=== PATIENT | female | born 1975 | race Asian ===

== ENCOUNTER → 2017-01-25 | Outpatient (CLI) | payer BC ==
[2017-01-25 11:54] LABS: EOSINOPHILS % 4.3 % (0.0-5.0); HEMATOCRIT. 41.1 % (36.0-48.0); LYMPHOCYTES % 35.5 % (20.0-50.0); MEAN CORPUSCULAR HEMOGLOBIN 31.8 pg (28.0-32.0); MEAN PLATELET VOLUME 7.5 fl (7.4-10.4); NEUTROPHILS % 50.2 % (40.0-76.0); PLATELET 248 x1000/uL (130-400); RED BLOOD CELL COUNT 4.42 mill/uL (4.2-5.4); RED CELL DISTRIBUTION WIDTH 13.5 % (11.6-14.6)
[2017-01-25 11:58] LABS: CARBON DIOXIDE 27 mEq/L (21-32); CHLORIDE 104 mEq/L (98-107); HDL CHOLESTEROL 79 mg/dL (40-59); LDL CHOLESTEROL 86 mg/dL (5-100)
== END | disposition home or self-care (01) ==
LOC: LAB 10:43
PROVIDERS: ATTEND Internal Medicine
DX: Z00.01 Encounter for general adult medical examination with abnormal findings (principal); I10 Essential (primary) hypertension
CPT/HCPCS: 36415; 80053; 80061; 82248; 84439; 84443; 85025

== ENCOUNTER → 2017-02-06 | Outpatient (CLI) | payer BC | END | disposition home or self-care (01) | LOC: US 09:54 | PROVIDERS: ATTEND Internal Medicine | DX: N83.291 Other ovarian cyst, right side (principal) | CPT/HCPCS: 76830; 76856 ==

== ENCOUNTER → 2017-10-09 | Outpatient (CLI) | payer BC ==
[2017-10-09 08:32] LABS: BASOPHILS % 0.8 % (0.0-2.0); EOSINOPHILS % 1.5 % (0.0-5.0); HEMATOCRIT. 42.2 % (36.0-48.0); HEMOGLOBIN. 14.4 g/dL (12.0-16.0); LYMPHOCYTES % 20.2 % (20.0-50.0); MEAN CORPUSCULAR HEMOGLOBIN 31.8 pg (28.0-32.0); MEAN CORPUSCULAR VOLUME 93.6 fL (81.0-99.0); MEAN PLATELET VOLUME 7.6 fl (7.4-10.4); MONOCYTES % 6.5 % (2.0-8.0); PLATELET 224 x1000/uL (130-400); RED BLOOD CELL COUNT 4.51 mill/uL (4.2-5.4); RED CELL DISTRIBUTION WIDTH 13.9 % (11.6-14.6)
[2017-10-10 09:10] LABS: HAV IGM ANTIBODY Negative (Negative); HBSAG SCREEN Negative (Negative); HEPATITIS B CORE IGM AB Negative (Negative); HEPATITIS C AB 0.2 s/co ratio (0.0-0.9)
[2017-10-10 15:07] LABS: HIV SCREEN 4G Non Reactive (Non Reactive)
[2017-10-11 13:12] LABS: HGB A 97.7 % (96.4-98.8); HGB A2 2.3 % (1.8-3.2); HGB SOLUBILITY Negative (Negative)
== END ==
LOC: LAB 07:19
PROVIDERS: ATTEND Obstetrics & Gynecology Obstetrics
DX: Z33.1 Pregnant state, incidental (principal)
CPT/HCPCS: 36415; 80074; 82947; 82950; 83021; 85025; 85660; 86765; 86850; 86900; 87186

== ENCOUNTER → 2018-02-08 | Outpatient (CLI) | payer BC ==
[2018-02-09 10:09] LABS: CANCER ANTIGEN 125 12.3 U/mL (0.0-38.1)
== END | disposition home or self-care (01) ==
LOC: LAB 09:46
PROVIDERS: ATTEND Obstetrics & Gynecology Obstetrics
DX: E28.9 Ovarian dysfunction, unspecified (principal); N83.209 Unspecified ovarian cyst, unspecified side
CPT/HCPCS: 86304; 86305

== ENCOUNTER → 2018-03-05 | Outpatient (CLI) | payer BC ==
[2018-03-05 12:54] LABS: HEMATOCRIT 33.7 % (36.0-48.0); HEMOGLOBIN 11.4 g/dL (12.0-16.0)
== END | disposition home or self-care (01) ==
LOC: LAB 10:57
PROVIDERS: ATTEND Obstetrics & Gynecology Obstetrics
DX: O09.90 Supervision of high risk pregnancy, unspecified, unspecified trimester (principal); Z3A.00 Weeks of gestation of pregnancy not specified
CPT/HCPCS: 36415; 82950; 85014; 85018

== ENCOUNTER 2018-04-25 14:27 | Observation (INO) | payer BC ==
[~2018-04-25] VITALS: Ht 152.4 cm; Wt 57.2 kg
[2018-04-25] MEDS ORDERED: CHOL400T28 PO (15:04)
[2018-04-25] MEDS ORDERED: FERR325T6 PO (15:04)
[2018-04-25] MEDS ORDERED: DOCU-138 PO (15:04)
[2018-04-25] MEDS ORDERED: CALC-1042 PO (15:04)
[2018-04-25] MEDS ORDERED: PNV1TABL76 PO (15:04)
== END 2018-04-25 17:26 | disposition home or self-care (01) ==
LOC: 8 EST LDRP 14:27
PROVIDERS: ADMIT Obstetrics & Gynecology Obstetrics; ATTEND Obstetrics & Gynecology Obstetrics
DX: O62.9 Abnormality of forces of labor, unspecified (principal); O09.523 Supervision of elderly multigravida, third trimester; Z3A.37 37 weeks gestation of pregnancy
CPT/HCPCS: 59025; 76805; 76818; G0378

== ENCOUNTER 2018-04-29 11:08 | Inpatient (IN) | payer BC ==
[~2018-04-29] VITALS: Ht 154.9 cm; Wt 58.5 kg
[~2018-04-29 11:08] MED LIST: CALC-1042 PO; CHOL400T28 PO; DOCU-138 PO; FERR325T6 PO; PNV1TABL76 PO
[2018-04-29] MEDS ORDERED: LACTATED RINGERS 1,000 ML IV SCH (11:37)
[2018-04-29] MEDS ORDERED: LIDOCAINE HCL 1% 20ML VIAL (Pyxis) INJ INFIL SCH (11:45)
[2018-04-29] MEDS ORDERED: NALOXONE HCL 0.4 MG/ML 1ML VIAL IM PRN (11:45)
[2018-04-29] MEDS ORDERED: CARBOPROST TROMETHAMINE 250 MCG/ML AMPUL IM PRN (11:45)
[2018-04-29] MEDS ORDERED: BUTORPHANOL TARTRATE 2 MG/ML VIAL IV PRN (11:45)
[2018-04-29] MEDS ORDERED: METHYLERGONOVINE MALEATE 0.2 MG/ML IM PRN (11:45)
[2018-04-29] MEDS: LACTATED RINGERS 1,000 ML IV SCH ×3 (12:18→20:03)
[2018-04-29 12:29] LABS: BASOPHILS % 0.5 % (0.0-2.0); EOSINOPHILS % 0.4 % (0.0-5.0); HEMATOCRIT. 36.9 % (36.0-48.0); HEMOGLOBIN. 12.7 g/dL (12.0-16.0); LYMPHOCYTES % 14.5 % (20.0-50.0); MEAN CORPUSCULAR VOLUME 96.1 fL (81.0-99.0); MEAN PLATELET VOLUME 8.2 fl (7.4-10.4); MONOCYTES % 8.5 % (2.0-8.0); NEUTROPHILS % 76.1 % (40.0-76.0); PLATELET 195 x1000/uL (130-400); RED BLOOD CELL COUNT 3.84 mill/uL (4.2-5.4); RED CELL DISTRIBUTION WIDTH 18.4 % (11.6-14.6)
[2018-04-29 12:41] LABS: INR 0.9; PROTHROMBIN TIME 9.4 sec (9.1-11.1)
[2018-04-29 13:13] LABS: HEPATITIS B SURFACE ANTIGEN NEGATIVE
[2018-04-29 13:16] LABS: CLARITY URINE CLOUDY (CLEAR); COLOR URINE YELLOW (YELLOW); KETONES URINE NEGATIVE (NEGATIVE); LEUKOCYTE ESTERASE URINE NEGATIVE (NEGATIVE); NITRITE URINE NEGATIVE (NEGATIVE); OCCULT BLOOD URINE NEGATIVE (NEGATIVE); PROTEIN URINE NEGATIVE (NEGATIVE); UROBILINOGEN URINE 0.2 E.U./dL (0.2-1.0)
[2018-04-29] MEDS: MISOPROSTOL 100MCG TABLET VG SCH ×2 (13:18→18:06)
[2018-04-29 13:37] LABS: CANNABINOID URINE SCREEN NEGATIVE (NEGATIVE)
[2018-04-29 13:38] LABS: *AMPHETAMINES SCREEN URINE NEGATIVE (NEGATIVE); *BENZODIAZEPINES SCREEN URINE NEGATIVE (NEGATIVE)
[2018-04-29 13:39] LABS: OPIATES URINE SCREEN NEGATIVE (NEGATIVE)
[2018-04-29 13:41] LABS: *COCAINE SCREEN URINE NEGATIVE (NEGATIVE); METHADONE URINE SCREEN NEGATIVE (NEGATIVE)
[2018-04-29 13:43] LABS: PHENCYCLIDINE URINE SCREEN NEGATIVE (NEGATIVE)
[2018-04-29 13:44] LABS: *BARBITURATES SCREEN URINE NEGATIVE (NEGATIVE)
[2018-04-29] MEDS ORDERED: FENTANYL CITRATE/PF 50MCG/ML 2ML VIAL ONE (19:21)
[2018-04-29] MEDS ORDERED: BUPIVACAINE HCL/PF 0.25% (2.5MG/ML) 10ML ONE (19:23)
[2018-04-29] MEDS ORDERED: BUPIVACAINE HCL/NS/PF EPIDURAL 100 ML EP ONE (19:23)
[2018-04-29] MEDS ORDERED: SUCCINYLCHOLINE CHLORIDE 200MG/10ML IV ONE (19:59)
[2018-04-29] MEDS ORDERED: ETOMIDATE 2MG/ML 10ML VIAL IV ONE (20:22)
[2018-04-29] MEDS: DEXT 5%/LR + PITOCIN 20UNITS/L 1,000 ML IV SCH (22:19)
[2018-04-30] MEDS ORDERED: METHYLERGONOVINE MALEATE 0.2 MG/ML IM PRN
[2018-04-30] MEDS ORDERED: HEMORRHOIDAL SUPP PR PRN
[2018-04-30] MEDS ORDERED: BENZOCAINE/LANOLIN/ALOE VERA SPRAY TOP PRN ×2
[2018-04-30] MEDS ORDERED: LANOLIN OINT 0.25 GM TUBE TOP PRN
[2018-04-30] MEDS: DEXT 5%/LR + PITOCIN 20UNITS/L 1,000 ML IV SCH (00:20)
[2018-04-30 01:15] VITALS: BP 123/71
[2018-04-30 01:45] VITALS: BP 125/75
[2018-04-30 02:15] VITALS: BP 128/60
[2018-04-30] MEDS ORDERED: KETOROLAC 30MG/ML VIAL IV PRN (06:00)
[2018-04-30 06:30] LABS: HEMOGLOBIN. 11.7 g/dL (12.0-16.0); MEAN CORPUSCULAR HEMOGLOBIN 33.1 pg (28.0-32.0); MEAN PLATELET VOLUME 8.2 fl (7.4-10.4); PLATELET 166 x1000/uL (130-400); RED BLOOD CELL COUNT 3.54 mill/uL (4.2-5.4); RED CELL DISTRIBUTION WIDTH 18.3 % (11.6-14.6)
[2018-04-30 07:54] VITALS: BP 102/59
[2018-04-30] MEDS: PRENATAL VIT/FE FUMARATE/FA TABLET PO SCH (08:45)
[2018-04-30] MEDS: IBUPROFEN 800MG TABLET PO PRN (13:19)
[2018-04-30 15:46] LABS: PLATELET ESTIMATE NORMAL
[2018-04-30 16:06] VITALS: BP 112/66
[2018-04-30] MEDS: ACETAMINOPHEN 500MG TABLET PO PRN (18:51)
[2018-04-30 20:00] VITALS: BP 127/70
[2018-05-01] VITALS: BP 128/75
[2018-05-01] MEDS: ACETAMINOPHEN 500MG TABLET PO PRN (00:24)
[2018-05-01 08:15] VITALS: BP 126/61
[2018-05-01] MEDS: PRENATAL VIT/FE FUMARATE/FA TABLET PO SCH (10:16)
[2018-05-01] MEDS: IBUPROFEN 800MG TABLET PO PRN (10:17)
== END 2018-05-01 14:00 | disposition home or self-care (01) | DRG 806 ==
LOC: 8 EST LDRP 11:08 → OBSVTOIN 11:08 → 8EST 04-30 01:10
PROVIDERS: ADMIT Obstetrics & Gynecology Obstetrics; ATTEND Obstetrics & Gynecology Obstetrics
PROC: 10E0XZZ Delivery of Products of Conception, External Approach (ICD-10-PCS; principal; 2018-04-29)
PROC: 3E0R3BZ Introduction of Anesthetic Agent into Spinal Canal, Percutaneous Approach (ICD-10-PCS; 2018-04-29)
PROC: 00HU33Z Insertion of Infusion Device into Spinal Canal, Percutaneous Approach (ICD-10-PCS; 2018-04-29)
PROC: 3E033VJ Introduction of Other Hormone into Peripheral Vein, Percutaneous Approach (ICD-10-PCS; 2018-04-29)
PROC: 0HQ9XZZ Repair Perineum Skin, External Approach (ICD-10-PCS; 2018-04-29)
DX: O36.5930 Maternal care for other known or suspected poor fetal growth, third trimester, not applicable or unspecified (principal); O41.03X0 Oligohydramnios, third trimester, not applicable or unspecified; Z37.0 Single live birth; O77.0 Labor and delivery complicated by meconium in amniotic fluid; Z3A.38 38 weeks gestation of pregnancy; O09.523 Supervision of elderly multigravida, third trimester; O70.0 First degree perineal laceration during delivery
CPT/HCPCS: 36415; 80305; 86592; 86703; 86762; 86850; 86900; 87340; 99281; G0378; J0330; J1885; J2590; J3010; J3490; J7120; A4315

== ENCOUNTER 2018-05-03 13:01 | Emergency (ER) | payer BC ==
[~2018-05-03] VITALS: Ht 152.4 cm; Wt 52.0 kg
[2018-05-03] MEDS ORDERED: SODIUM CHLORIDE 0.9% 1,000 ML IV ONE (14:06)
[2018-05-03 15:04] LABS: CHLORIDE 106 mEq/L (98-107)
[2018-05-03 15:11] LABS: BASOPHILS % 0.7 % (0.0-2.0); EOSINOPHILS % 1.2 % (0.0-5.0); HEMATOCRIT. 35.5 % (36.0-48.0); LYMPHOCYTES % 13.5 % (20.0-50.0); MEAN CORPUSCULAR HEMOGLOBIN 33.1 pg (28.0-32.0); MEAN CORPUSCULAR VOLUME 97.7 fL (81.0-99.0); MEAN PLATELET VOLUME 7.9 fl (7.4-10.4); MONOCYTES % 6.8 % (2.0-8.0); NEUTROPHILS % 77.8 % (40.0-76.0); PLATELET 214 x1000/uL (130-400); RED BLOOD CELL COUNT 3.63 mill/uL (4.2-5.4); RED CELL DISTRIBUTION WIDTH 18.4 % (11.6-14.6)
[2018-05-03 15:19] LABS: INR 0.9; PROTHROMBIN TIME 9.1 sec (9.1-11.1)
[2018-05-03 16:50] VITALS: BP 159/86
== END 2018-05-03 17:11 | disposition home or self-care (01) ==
LOC: ER 13:35
DX: G97.1 Other reaction to spinal and lumbar puncture (principal); Z79.899 Other long term (current) drug therapy; Y84.4 Aspiration of fluid as the cause of abnormal reaction of the patient, or of later complication, without mention of misadventure at the time of the procedure
CPT/HCPCS: 36415; 80053; 85025; 85610; 99283; J7030

== ENCOUNTER → 2020-12-15 | Outpatient (CLI) | payer BC ==
[2020-12-15 09:09] LABS: BASOPHILS % 1.1 % (0.0-2.0); EOSINOPHILS % 3.8 % (0.0-5.0); HEMATOCRIT. 41.2 % (36.0-48.0); HEMOGLOBIN. 13.9 g/dL (12.0-16.0); LYMPHOCYTES % 35.7 % (20.0-50.0); MEAN CORPUSCULAR VOLUME 94.6 fL (81.0-99.0); MEAN PLATELET VOLUME 7.2 fl (7.4-10.4); MONOCYTES % 7.3 % (2.0-8.0); NEUTROPHILS % 52.1 % (40.0-76.0); PLATELET 209 x1000/uL (130-400); RED BLOOD CELL COUNT 4.36 mill/uL (4.2-5.4); RED CELL DISTRIBUTION WIDTH 13.3 % (11.6-14.6)
[2020-12-15 09:23] LABS: CHLORIDE 106 mEq/L (98-107)
[2020-12-15 09:32] LABS: HDL CHOLESTEROL 81 mg/dL (40-59); LDL CHOLESTEROL 94 mg/dL (5-100)
[2020-12-16 05:09] LABS: VITAMIN D 25-OH 28.6 ng/mL (30.0-100.0)
== END | disposition home or self-care (01) ==
LOC: LAB 08:45
PROVIDERS: ATTEND Internal Medicine
DX: Z00.00 Encounter for general adult medical examination without abnormal findings (principal)
CPT/HCPCS: 36415; 80053; 80061; 80076; 82248; 82306; 84436; 84443; 85025

== ENCOUNTER → 2021-12-07 | Outpatient (CLI) | payer BC ==
[2021-12-07 09:12] LABS: BASOPHILS % 1.1 % (0.0-2.0); HEMATOCRIT. 42.5 % (36.0-48.0); HEMOGLOBIN. 14.1 g/dL (12.0-16.0); LYMPHOCYTES % 38.4 % (20.0-50.0); MEAN CORPUSCULAR HEMOGLOBIN 31.8 pg (28.0-32.0); MEAN PLATELET VOLUME 7.8 fl (7.4-10.4); MONOCYTES % 7.2 % (2.0-8.0); NEUTROPHILS % 48.3 % (40.0-76.0); PLATELET 205 x1000/uL (130-400); RED BLOOD CELL COUNT 4.43 mill/uL (4.2-5.4); RED CELL DISTRIBUTION WIDTH 13.4 % (11.6-14.6)
[2021-12-07 09:27] LABS: CHLORIDE 105 mEq/L (98-107)
[2021-12-07 09:45] LABS: HDL CHOLESTEROL 98 mg/dL (40-59); LDL CHOLESTEROL 86 mg/dL (5-100)
[2021-12-09 13:07] LABS: VITAMIN D 25-OH 28.1 ng/mL (30.0-100.0)
== END | disposition home or self-care (01) ==
LOC: US 08:33
PROVIDERS: ATTEND Internal Medicine
DX: N83.291 Other ovarian cyst, right side (principal); R19.00 Intra-abdominal and pelvic swelling, mass and lump, unspecified site
CPT/HCPCS: 36415; 76830; 76856; 80048; 80061; 80076; 82306; 84436; 84443; 85025

== ENCOUNTER → 2023-03-13 | Outpatient (CLI) | payer BC ==
[2023-03-13 11:17] LABS: BASOPHILS % 0.7 % (0.0-2.0); EOSINOPHILS % 4.1 % (0.0-5.0); LYMPHOCYTES % 33.2 % (20.0-50.0); MEAN CORPUSCULAR HGB CONC 34.2 g/dL (31.0-37.0); MEAN CORPUSCULAR VOLUME 93.6 fL (81.0-99.0); MEAN PLATELET VOLUME 7.1 fl (7.4-10.4); PLATELET 230 x1000/uL (130-400); RED BLOOD CELL COUNT 4.06 mill/uL (4.2-5.4); RED CELL DISTRIBUTION WIDTH 13.3 % (11.6-14.6); WHITE BLOOD COUNT 3.7 x1000/uL (4.5-11.0)
[2023-03-13 11:54] LABS: ALANINE AMINOTRANSFERASE 23 IU/L (10-49); ALBUMIN 4.1 g/dL (3.2-4.8); ASPARTATE AMINOTRANSFERASE 23 IU/L (<34); BILIRUBIN DIRECT 0.2 mg/dL (<=3.0); BILIRUBIN TOTAL 0.8 mg/dL (0.1-1.0); CARBON DIOXIDE 24 mEq/L (21-32); CHLORIDE 105 mEq/L (98-107); CHOLESTEROL 148 mg/dL (<200); CREATININE 0.6 mg/dL (0.6-1.0); GLUCOSE 87 mg/dL (70-105); HDL CHOLESTEROL 81 mg/dL (>65); LDL CHOLESTEROL 82 mg/dL (5-100); POTASSIUM 4.1 mEq/L (3.5-5.1); PROTEIN TOTAL 6.7 g/dL (6.0-8.3); SODIUM 137 mEq/L (136-145); THYROID STIMULATING HORMONE 1.11 uIU/mL (0.55-4.78); TRIGLYCERIDE 47 mg/dL (0-150); UREA NITROGEN BLOOD 6 mg/dL (9-23)
[2023-03-14 09:09] LABS: T4 THYROXINE 8.7 ug/dL (4.5-12.0); VITAMIN D 25-OH 32.8 ng/mL (30.0-100.0)
== END | disposition home or self-care (01) ==
LOC: LAB 10:30
PROVIDERS: ATTEND Internal Medicine
DX: Z00.01 Encounter for general adult medical examination with abnormal findings (principal); E55.9 Vitamin D deficiency, unspecified
CPT/HCPCS: 36415; 80048; 80061; 80076; 82306; 84436; 84443; 85025

== ENCOUNTER 2023-07-20 14:00 | Emergency (ER) | payer BC ==
[~2023-07-20] VITALS: Ht 142.2 cm; Wt 47.5 kg
[2023-07-20 14:06] VITALS: BP 142/68; TEMP 98.7; O2SAT 100
[2023-07-20 14:08] VITALS: PULSE 105
[2023-07-20 15:11] LABS: BASOPHILS % 0.9 % (0.0-2.0); EOSINOPHILS % 1.5 % (0.0-5.0); HEMOGLOBIN. 13.2 g/dL (12.0-16.0); LYMPHOCYTES % 24.1 % (20.0-50.0); MEAN CORPUSCULAR HEMOGLOBIN 31.4 pg (28.0-32.0); MEAN CORPUSCULAR HGB CONC 33.8 g/dL (31.0-37.0); MEAN CORPUSCULAR VOLUME 92.9 fL (81.0-99.0); MEAN PLATELET VOLUME 7.6 fl (7.4-10.4); MONOCYTES % 8.8 % (2.0-8.0); NEUTROPHILS % 64.7 % (40.0-76.0); PLATELET 229 x1000/uL (130-400); RED CELL DISTRIBUTION WIDTH 13.6 % (11.6-14.6); WHITE BLOOD COUNT 6.2 x1000/uL (4.5-11.0)
[2023-07-20 15:27] LABS: ALANINE AMINOTRANSFERASE 48 IU/L (10-49); ALBUMIN 4.6 g/dL (3.2-4.8); ASPARTATE AMINOTRANSFERASE 30 IU/L (<34); BILIRUBIN TOTAL 0.6 mg/dL (0.1-1.0); CALCIUM 9.4 mg/dL (8.7-10.4); CARBON DIOXIDE 26 mEq/L (21-32); CHLORIDE 104 mEq/L (98-107); CREATININE 0.7 mg/dL (0.6-1.0); GLUCOSE 94 mg/dL (70-105); POTASSIUM 3.9 mEq/L (3.5-5.1); PROTEIN TOTAL 8.2 g/dL (6.0-8.3); SODIUM 136 mEq/L (136-145); UREA NITROGEN BLOOD 10 mg/dL (9-23)
[2023-07-20 15:28] LABS: CLARITY URINE CLEAR (CLEAR); COLOR URINE YELLOW (YELLOW); GLUCOSE URINE NEGATIVE (NEGATIVE); KETONES URINE NEGATIVE (NEGATIVE); LEUKOCYTE ESTERASE URINE NEGATIVE (NEGATIVE); NITRITE URINE NEGATIVE (NEGATIVE); OCCULT BLOOD URINE NEGATIVE (NEGATIVE); PROTEIN URINE NEGATIVE (NEGATIVE); SPECIFIC GRAVITY URINE 1.015 (1.005-1.030); UROBILINOGEN URINE 0.2 E.U./dL (0.2-1.0)
== END 2023-07-20 21:11 | disposition home or self-care (01) ==
LOC: ER 14:00
DX: R10.84 Generalized abdominal pain (principal); Z79.899 Other long term (current) drug therapy
CPT/HCPCS: 36415; 74176; 76830; 76856; 80053; 81003; 81025; 85025; 99284

== ENCOUNTER 2023-08-15 22:56 | Emergency (ER) | payer BC ==
[~2023-08-15] VITALS: Ht 149.9 cm; Wt 48.0 kg
[2023-08-15 23:08] VITALS: O2SAT 100
[2023-08-16 01:00] LABS: CHLORIDE 107 mEq/L (98-107); POTASSIUM 4.4 mEq/L (3.5-5.1); SODIUM 138 mEq/L (136-145)
[2023-08-16 01:01] LABS: CARBON DIOXIDE 27 mEq/L (21-32)
[2023-08-16 01:06] LABS: CREATININE 0.9 mg/dL (0.6-1.0); GLUCOSE 89 mg/dL (70-105); UREA NITROGEN BLOOD 10 mg/dL (9-23)
[2023-08-16 01:09] LABS: TROPONIN I HIGH SENSITIVITY < 4 ng/L (3.0-34)
[2023-08-16 01:21] LABS: BASOPHILS % 0.9 % (0.0-2.0); EOSINOPHILS % 2.6 % (0.0-5.0); HEMATOCRIT. 40.9 % (36.0-48.0); HEMOGLOBIN. 13.6 g/dL (12.0-16.0); LYMPHOCYTES % 21.2 % (20.0-50.0); MEAN CORPUSCULAR HEMOGLOBIN 31.6 pg (28.0-32.0); MEAN CORPUSCULAR HGB CONC 33.2 g/dL (31.0-37.0); MEAN CORPUSCULAR VOLUME 95.3 fL (81.0-99.0); MEAN PLATELET VOLUME 7.5 fl (7.4-10.4); MONOCYTES % 8.2 % (2.0-8.0); NEUTROPHILS % 67.1 % (40.0-76.0); PLATELET 250 x1000/uL (130-400); RED BLOOD CELL COUNT 4.29 mill/uL (4.2-5.4); RED CELL DISTRIBUTION WIDTH 13.4 % (11.6-14.6); WHITE BLOOD COUNT 7.3 x1000/uL (4.5-11.0)
[2023-08-16 03:04] VITALS: BP 145/77; PULSE 81; RESP 26
[2023-08-16 03:13] VITALS: TEMP 98.6
[2023-08-16] MEDS: ACETAMINOPHEN 325MG TABLET PO ONE (03:13)
== END 2023-08-16 03:14 | disposition home or self-care (01) ==
LOC: ER 22:56
DX: R07.9 Chest pain, unspecified (principal)
CPT/HCPCS: 36415; 71045; 80048; 84484; 85025; 93005; 99285

== ENCOUNTER → 2024-04-08 | Outpatient (CLI) | payer BC ==
[2024-04-08 11:35] LABS: BASOPHILS % 1.2 % (0.0-2.0); EOSINOPHILS % 3.4 % (0.0-5.0); HEMATOCRIT. 42.7 % (36.0-48.0); LYMPHOCYTES % 30.9 % (20.0-50.0); MEAN CORPUSCULAR HEMOGLOBIN 31.2 pg (28.0-32.0); MEAN CORPUSCULAR HGB CONC 32.9 g/dL (31.0-37.0); MEAN PLATELET VOLUME 7.4 fl (7.4-10.4); MONOCYTES % 10.2 % (2.0-8.0); NEUTROPHILS % 54.3 % (40.0-76.0); PLATELET 229 x1000/uL (130-400); RED BLOOD CELL COUNT 4.49 mill/uL (4.2-5.4); RED CELL DISTRIBUTION WIDTH 13.7 % (11.6-14.6); WHITE BLOOD COUNT 4.1 x1000/uL (4.5-11.0)
[2024-04-08 11:49] LABS: CLARITY URINE CLEAR (CLEAR); COLOR URINE YELLOW (YELLOW); GLUCOSE URINE NEGATIVE (NEGATIVE); KETONES URINE NEGATIVE (NEGATIVE); PROTEIN URINE NEGATIVE (NEGATIVE)
[2024-04-08 11:56] LABS: LEUKOCYTE ESTERASE URINE NEGATIVE (NEGATIVE); NITRITE URINE NEGATIVE (NEGATIVE); OCCULT BLOOD URINE NEGATIVE (NEGATIVE); UROBILINOGEN URINE 0.2 E.U./dL (0.2-1.0)
== END | disposition home or self-care (01) ==
LOC: LAB 10:28
PROVIDERS: ATTEND Internal Medicine
DX: Z00.00 Encounter for general adult medical examination without abnormal findings (principal); Z13.1 Encounter for screening for diabetes mellitus; Z13.220 Encounter for screening for lipoid disorders; D55.9 Anemia due to enzyme disorder, unspecified
CPT/HCPCS: 36415; 80061; 81003; 82306; 83036; 85025

== ENCOUNTER → 2024-06-27 | Outpatient (CLI) | payer BC ==
[2024-06-27 09:31] LABS: CHLORIDE 105 mEq/L (98-107); POTASSIUM 4.4 mEq/L (3.5-5.1); SODIUM 138 mEq/L (136-145)
[2024-06-27 09:32] LABS: CARBON DIOXIDE 28 mEq/L (21-32)
[2024-06-27 09:37] LABS: CREATININE 0.6 mg/dL (0.6-1.0); GLUCOSE 89 mg/dL (70-105); UREA NITROGEN BLOOD 12 mg/dL (9-23)
[2024-06-27 09:39] LABS: ALANINE AMINOTRANSFERASE 53 IU/L (10-49); ASPARTATE AMINOTRANSFERASE 38 IU/L (<34); BILIRUBIN TOTAL 0.6 mg/dL (0.1-1.0); PROTEIN TOTAL 7.2 g/dL (6.0-8.3)
[2024-06-27 09:43] LABS: EOSINOPHILS % 2.3 % (0.0-5.0); HEMATOCRIT. 38.4 % (36.0-48.0); HEMOGLOBIN. 12.6 g/dL (12.0-16.0); LYMPHOCYTES % 27.2 % (20.0-50.0); MEAN CORPUSCULAR HEMOGLOBIN 30.7 pg (28.0-32.0); MEAN CORPUSCULAR HGB CONC 32.9 g/dL (31.0-37.0); MEAN CORPUSCULAR VOLUME 93.4 fL (81.0-99.0); MEAN PLATELET VOLUME 7.4 fl (7.4-10.4); MONOCYTES % 7.2 % (2.0-8.0); NEUTROPHILS % 62.3 % (40.0-76.0); PLATELET 254 x1000/uL (130-400); RED BLOOD CELL COUNT 4.11 mill/uL (4.2-5.4); RED CELL DISTRIBUTION WIDTH 13.7 % (11.6-14.6); WHITE BLOOD COUNT 4.5 x1000/uL (4.5-11.0)
== END | disposition home or self-care (01) ==
LOC: LAB 08:36
PROVIDERS: ATTEND Internal Medicine
DX: D72.819 Decreased white blood cell count, unspecified (principal)
CPT/HCPCS: 36415; 80053; 85025; 86705

== ENCOUNTER 2024-07-06 15:07 | Inpatient (IN) | payer BC ==
[~2024-07-06] VITALS: Ht 149.9 cm; Wt 49.9 kg
[2024-07-06 15:56] LABS: BASOPHILS % 0.7 % (0.0-2.0); EOSINOPHILS % 0.9 % (0.0-5.0); HEMOGLOBIN. 12.9 g/dL (12.0-16.0); MEAN CORPUSCULAR HEMOGLOBIN 30.4 pg (28.0-32.0); MEAN CORPUSCULAR HGB CONC 33.1 g/dL (31.0-37.0); MEAN PLATELET VOLUME 7.4 fl (7.4-10.4); MONOCYTES % 7.2 % (2.0-8.0); NEUTROPHILS % 76.2 % (40.0-76.0); PLATELET 234 x1000/uL (130-400); RED BLOOD CELL COUNT 4.24 mill/uL (4.2-5.4); WHITE BLOOD COUNT 6.1 x1000/uL (4.5-11.0)
[2024-07-06 15:59] LABS: CHLORIDE 103 mEq/L (98-107); POTASSIUM 4.2 mEq/L (3.5-5.1); SODIUM 137 mEq/L (136-145)
[2024-07-06 16:00] LABS: CALCIUM 9.1 mg/dL (8.7-10.4); CARBON DIOXIDE 26 mEq/L (21-32)
[2024-07-06 16:05] LABS: CREATININE 0.7 mg/dL (0.6-1.0); GLUCOSE 158 mg/dL (70-105); UREA NITROGEN BLOOD 12 mg/dL (9-23)
[2024-07-06 16:17] LABS: TROPONIN I HIGH SENSITIVITY < 4 ng/L (3.0-34)
[2024-07-06 19:12] LABS: TROPONIN I HIGH SENSITIVITY < 4 ng/L (3.0-34)
[2024-07-06] MEDS: ASPIRIN 325MG EC TABLET PO ONE (19:27)
[2024-07-06] MEDS: MAGNESIUM/ALUMINUM HYDROXIDE/SIMETHICONE 30ML UDC PO ONE (19:27)
[2024-07-06] MEDS: ACETAMINOPHEN 325MG TABLET PO ONE (19:27)
[2024-07-06] MEDS: PANTOPRAZOLE 40MG DR TABLET PO ONE (19:27)
[2024-07-07] MEDS: IOHEXOL-350 100 ML BOTTLE ONE (05:13)
[2024-07-07] MEDS ORDERED: DOCUSATE SODIUM 100MG CAPSULE PO PRN (07:30)
[2024-07-07] MEDS ORDERED: GUAIFENESIN 200MG/10ML SUGAR FREE UDC PO PRN (07:30)
[2024-07-07] MEDS ORDERED: IPRATROPIUM/ALBUTEROL 0.5-3(2.5)MG/3ML NEB HHN PRN (07:30)
[2024-07-07] MEDS ORDERED: CLONIDINE 0.1MG TABLET PO PRN (07:30)
[2024-07-07] MEDS ORDERED: ONDANSETRON HCL 4MG/2ML INJ IV PRN (07:30)
[2024-07-07] MEDS ORDERED: ACETAMINOPHEN 325MG TABLET PO PRN (07:30)
[2024-07-07] MEDS ORDERED: MAGNESIUM/ALUMINUM HYDROXIDE/SIMETHICONE 30ML UDC PO PRN (07:30)
[2024-07-07 08:28] LABS: CLARITY URINE CLOUDY (CLEAR); COLOR URINE YELLOW (YELLOW); GLUCOSE URINE NEGATIVE (NEGATIVE); KETONES URINE TRACE (NEGATIVE); LEUKOCYTE ESTERASE URINE 2+ (NEGATIVE); NITRITE URINE NEGATIVE (NEGATIVE); OCCULT BLOOD URINE NEGATIVE (NEGATIVE); PROTEIN URINE NEGATIVE (NEGATIVE); SPECIFIC GRAVITY URINE 1.027 (1.005-1.030); UROBILINOGEN URINE 0.2 E.U./dL (0.2-1.0)
[2024-07-07 08:37] LABS: TRIGLYCERIDE 42 mg/dL (0-150)
[2024-07-07 08:38] LABS: LDL CHOLESTEROL 75 mg/dL (5-100)
[2024-07-07 08:39] LABS: ALBUMIN 4.1 g/dL (3.2-4.8); CHOLESTEROL 175 mg/dL (<200); HDL CHOLESTEROL 79 mg/dL (>65); PHOSPHORUS 2.3 mg/dL (2.5-4.9)
[2024-07-07 08:41] LABS: T4 FREE 1.37 ng/dL (0.89-1.76); THYROID STIMULATING HORMONE 2.77 uIU/mL (0.55-4.78)
[2024-07-07 08:53] LABS: *AMPHETAMINES SCREEN URINE NEGATIVE (NEGATIVE); *BARBITURATES SCREEN URINE NEGATIVE (NEGATIVE); *BENZODIAZEPINES SCREEN URINE NEGATIVE (NEGATIVE)
[2024-07-07 08:54] LABS: *COCAINE SCREEN URINE NEGATIVE (NEGATIVE); CANNABINOID URINE SCREEN NEGATIVE (NEGATIVE); ECSTASY MDMA SCREEN URINE NEGATIVE (NEGATIVE); METHADONE URINE SCREEN NEGATIVE (NEGATIVE); OPIATES URINE SCREEN NEGATIVE (NEGATIVE); PHENCYCLIDINE URINE SCREEN NEGATIVE (NEGATIVE)
[2024-07-07] MEDS ORDERED: NITROGLYCERIN 0.4MG TABLET SL SL PRN (09:15)
[2024-07-07 09:32] LABS: BACTERIA URINE 1+; SQUAMOUS EPITHELIAL CELL URINE 2+ /lpf (RARE/1+)
[2024-07-07 09:33] LABS: RBC URINE 0-2 /hpf (0-2); YEAST URINE NONE SEEN
[2024-07-07 12:00] VITALS: BP 97/67; PULSE 64; RESP 15; TEMP 36.6; O2SAT 99
[2024-07-07] MEDS: ASPIRIN 81MG TABLET PO SCH (13:11)
[2024-07-07] MEDS: SODIUM PHOSPHATE 15 MMOL in DEXT 5% WATER 245 ML IV SCH (13:12)
[2024-07-07] MEDS: ENOXAPARIN 40MG/0.4ML SYR SUBCUT SCH (13:12)
[2024-07-07] MEDS: PANTOPRAZOLE 40MG DR TABLET PO SCH (13:12)
[2024-07-07 16:00] VITALS: BP 99/57; PULSE 83; RESP 20; TEMP 36.5; O2SAT 100
[2024-07-07] MEDS: CEFTRIAXONE 2GM/50ML 50 ML IV SCH (17:32)
[2024-07-07 18:24] LABS: CREATINE KINASE MB FRACTION < 0.5 ng/mL (0.5-3.6)
[2024-07-07 18:32] LABS: TROPONIN I HIGH SENSITIVITY < 4 ng/L (3.0-34)
[2024-07-07 20:00] VITALS: BP 103/65; PULSE 67; RESP 15; TEMP 36.2; O2SAT 98
[2024-07-07] MEDS: ACETAMINOPHEN 325MG TABLET PO PRN (21:10)
[2024-07-08] VITALS: BP 112/72; PULSE 86; RESP 24; TEMP 36.4; O2SAT 99
[2024-07-08 00:04] LABS: CREATINE KINASE MB FRACTION < 0.5 ng/mL (0.5-3.6)
[2024-07-08 00:08] LABS: TROPONIN I HIGH SENSITIVITY < 4 ng/L (3.0-34)
[2024-07-08 04:00] VITALS: BP 104/62; PULSE 91; RESP 18; TEMP 36.2; O2SAT 98
[2024-07-08 08:00] VITALS: BP 111/70; PULSE 73; RESP 16; TEMP 36.5; O2SAT 96
[2024-07-08] MEDS: FAMOTIDINE 20MG TABLET PO SCH (09:04)
[2024-07-08] MEDS ORDERED: OMEP20CA14 PO (11:55)
[2024-07-08] MEDS ORDERED: NITR-87 PO (11:55)
[2024-07-08 12:00] VITALS: BP 109/73; PULSE 75; RESP 16; TEMP 36.4; O2SAT 100
[2024-07-08 13:07] VITALS: BP 111/70; PULSE 73; TEMP 97.7; O2SAT 96
== END 2024-07-08 13:52 | disposition home or self-care (01) | DRG 313 ==
LOC: ER 15:07 → EDBEDREQ 20:08 → 3WST 07-07 02:22 → EDBEDREQDT 07-07 02:48 → EDBEDREQ 07-07 02:48 → EDBEDREQTM 07-07 02:48
PROVIDERS: ADMIT Hospitalist; ATTEND Hospitalist
DX: R07.89 Other chest pain (principal); M48.54XA Collapsed vertebra, not elsewhere classified, thoracic region, initial encounter for fracture; N39.0 Urinary tract infection, site not specified; K21.9 Gastro-esophageal reflux disease without esophagitis; E83.39 Other disorders of phosphorus metabolism; R20.0 Anesthesia of skin; M54.9 Dorsalgia, unspecified; Z83.3 Family history of diabetes mellitus
CPT/HCPCS: 36415; 71045; 71275; 80048; 80061; 80305; 81003; 82040; 82553; 83036; 83735; 83880; 84100; 84439; 84443; 84484; 85025; 85379; 93005; 99285; J0696; J1650; J3490; J7060; Q9967

== ENCOUNTER → 2024-07-22 | Outpatient (CLI) | payer BC ==
[~2024-07-22] MED LIST changes: +NITR-87 PO; +OMEP20CA14 PO
== END | disposition home or self-care (01) ==
LOC: MAMMO 09:28
PROVIDERS: ATTEND Internal Medicine
DX: Z12.31 Encounter for screening mammogram for malignant neoplasm of breast (principal)
CPT/HCPCS: 77063; 77067

== ENCOUNTER → 2024-09-18 | Outpatient (CLI) | payer BC ==
[2024-09-18 10:05] LABS: ALANINE AMINOTRANSFERASE 39 IU/L (10-49); ALBUMIN 4.2 g/dL (3.2-4.8); ASPARTATE AMINOTRANSFERASE 24 IU/L (<34); BILIRUBIN DIRECT 0.2 mg/dL (<=3.0); BILIRUBIN TOTAL 0.8 mg/dL (0.1-1.0); PROTEIN TOTAL 7.1 g/dL (6.0-8.3)
[2024-09-18 12:05] LABS: HEPATITIS B SURFACE AB 551.9 mIU/mL (<10)
[2024-09-18 12:37] LABS: HEPATITIS A AB IGM NEGATIVE (Negative)
[2024-09-19 06:07] LABS: HBSAG SCREEN Negative (Negative)
== END | disposition home or self-care (01) ==
LOC: LAB 09:23
PROVIDERS: ATTEND Internal Medicine
DX: R74.01 Elevation of levels of liver transaminase levels (principal)
CPT/HCPCS: 36415; 80076; 86706; 86709; 87340

== ENCOUNTER → 2024-10-02 | Outpatient (CLI) | payer BC | END | disposition home or self-care (01) | LOC: LAB 13:11 | PROVIDERS: ATTEND Internal Medicine | DX: I83.93 Asymptomatic varicose veins of bilateral lower extremities (principal) | CPT/HCPCS: 93970 ==

== ENCOUNTER 2025-01-20 20:12 | Emergency (ER) | payer BC ==
[~2025-01-20] VITALS: Ht 149.9 cm; Wt 50.0 kg
[2025-01-20] MEDS ORDERED: LIDOCAINE HCL 4% CREAM 76GM TUBE TP STA (22:15)
[2025-01-20] MEDS: ONDANSETRON 4MG ODT PO ONE (23:05)
[2025-01-20] MEDS: FAMOTIDINE 20MG TABLET PO ONE (23:06)
[2025-01-20 23:45] VITALS: PULSE 87; RESP 14; O2SAT 100
[2025-01-20] MEDS: LIDOCAINE HCL 4% (40MG/ML) SOLN 50ML NEB NR (23:45)
[2025-01-21 00:53] VITALS: BP 115/55; PULSE 75; RESP 15; TEMP 36.7; O2SAT 100
== END 2025-01-21 00:55 | disposition home or self-care (01) ==
LOC: ER 20:12
DX: T17.228A Food in pharynx causing other injury, initial encounter (principal); W44.F3XA Food entering into or through a natural orifice, initial encounter; Y93.89 Activity, other specified; Y92.89 Other specified places as the place of occurrence of the external cause; Y99.8 Other external cause status
CPT/HCPCS: 94640; 98960; 99283; Q0162; Z7610 ×3; 94070; 94664

== ENCOUNTER 2025-01-21 09:07 | Emergency (ER) | payer BC ==
[~2025-01-21] VITALS: Ht 160 cm; Wt 60.0 kg
[2025-01-21 09:13] VITALS: O2SAT 100
[2025-01-21] MEDS: TETRACAINE/BENZOCAINE/BUTAMBEN 20 GM SPRAY MM SCH (11:06)
[2025-01-21 12:37] VITALS: BP 117/72; PULSE 75; RESP 16; TEMP 36.7; O2SAT 100
== END 2025-01-21 12:38 | disposition home or self-care (01) ==
LOC: ER 09:07
DX: R09.A2 Foreign body sensation, throat (principal); R13.10 Dysphagia, unspecified
CPT/HCPCS: 99283